=== PATIENT | male | born 1995 | race Two or more races ===

== ENCOUNTER 2016-07-02 21:57 | Emergency (ER) | payer SELFPAY ==
[~2016-07-02] VITALS: Ht 165.1 cm; Wt 68.0 kg
[2016-07-02 22:16] VITALS: BP 128/87
[2016-07-02] MEDS ORDERED: Norco 5mg/325mg tab PO ONE (22:30)
[2016-07-02] MEDS ORDERED: Lidocaine 1% Plain 30 ml INJ ONE (23:30)
[2016-07-03] MEDS ORDERED: IBUPROFEN600 MG ORAL (00:25)
[2016-07-03] MEDS ORDERED: NORCO 5-325 TA1 EACH ORAL (00:25)
[2016-07-03 00:35] VITALS: BP 129/70
[2016-07-03 00:36] VITALS: BP 128/87
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
--- NOTE | 2016-07-03 10:59 | Diagnostic Imaging Report ---
Indications: Status post closed reduction of left elbow joint dislocation Technique: P. lateral left elbow Findings: Comparison: 07/02/16 Distal humerus now anatomically aligned with proximal radius and ulna. No obvious fracture. Surrounding soft tissues swollen. Suggestion of soft tissue gas. IMPRESSION: Anatomic reduction of dislocated left elbow Soft tissue gas suggests penetrating injury. Correlate clinically.
--- NOTE | 2016-07-03 13:41 | Diagnostic Imaging Report ---
Indications: Fall, left elbow injury and pain Technique: 3 views left elbow Findings: Comparison: None Proximal radius and ulna demonstrate complete bone width posterior dislocation relative to the distal humerus. No definite fracture identified. IMPRESSION: Dislocation of the elbow joint. No definite fracture.
== END 2016-07-03 00:36 | disposition home or self-care (01) ==
LOC: EDBD 21:57 → EMR 22:10
DX: S53.125A Posterior dislocation of left ulnohumeral joint, initial encounter (principal); Y04.0XXA Assault by unarmed brawl or fight, initial encounter; Y92.89 Other specified places as the place of occurrence of the external cause
CPT/HCPCS: 24605; 29105; 73070; 73080; 99284; J2001